=== PATIENT | male | born 2000 | race Caucasian/White ===

== ENCOUNTER 2021-06-22 17:45 | Inpatient (IN) | payer OTHER ==
[~2021-06-22] VITALS: Ht 177.8 cm; Wt 81.6 kg
[2021-06-22 18:33] LABS: HEMOGLOBIN 14.2 gm/dl (14.0-17.5); RED BLOOD COUNT 4.59 M/UL (4.20-5.50); WHITE BLOOD COUNT 4.8 K/UL (4.5-11.0)
[2021-06-22 18:52] LABS: BUN/CREATININE RATIO 19 (0-10)
[2021-06-23 10:33] LABS: WHITE BLOOD COUNT 4.8 K/UL (4.5-11.0)
[2021-06-23 10:35] LABS: HEMOGLOBIN 11.8 gm/dl (14.0-17.5); RED BLOOD COUNT 3.85 M/UL (4.20-5.50)
[2021-06-23 10:54] LABS: BUN/CREATININE RATIO 19 (0-10)
[2021-06-23] MEDS ORDERED: IBU600 MG PO (11:24)
[2021-06-23 23:09] LABS: ADENOVIRUS F 40/41 Not Detected (Negative); ASTROVIRUS Not Detected (Negative); CAMPYLOBACTER Not Detected (Negative); CRYPTOSPORIDIUM Not Detected (Negative); E.COLI 0157 Not Detected (Negative); ENTAMOEBA HISTOLYTICA Not Detected (Negative); ENTEROAGGREGATIVE E.COLI (EAEC Not Detected (Negative); ENTEROPATHOGENIC E.COLI (EPEC) Not Detected (Negative); ENTEROTOXIGENIC E.COLI (ETEC) Not Detected (Negative); GIARDIA LAMBLIA Not Detected (Negative); NOROVIRUS GI/GII Not Detected (Negative); PLESIOMONAS SHIGELLOIDES Not Detected (Negative); ROTOVIRUS A Not Detected (Negative); SALMONELLA Not Detected (Negative); SAPOVIRUS Not Detected (Negative); SHIG/ENTEROINVAS.ECOLI (EIEC) Not Detected (Negative); SHIGA-LIK TOX.PRO.E.COLI (STEC Not Detected (Negative); VIBRIO Not Detected (Negative); VIBRIO CHOLERAE Not Detected (Negative); YERSINIA ENTEROCOLITICA Not Detected (Negative)
[2021-06-24 06:36] LABS: HEMOGLOBIN 12.6 gm/dl (14.0-17.5); RED BLOOD COUNT 4.13 M/UL (4.20-5.50); WHITE BLOOD COUNT 5.1 K/UL (4.5-11.0)
[2021-06-24 07:04] LABS: BUN/CREATININE RATIO 19 (0-10)
[2021-06-24 08:17] LABS: CLOSTRIDIUM DIFFICILE TOX A/B DETECTED (Negative)
[2021-06-25 06:21] LABS: HEMOGLOBIN 13.9 gm/dl (14.0-17.5); WHITE BLOOD COUNT 5.9 K/UL (4.5-11.0)
[2021-06-25 06:34] LABS: RED BLOOD COUNT 4.55 M/UL (4.20-5.50)
[2021-06-25 06:50] LABS: BUN/CREATININE RATIO 11 (0-10)
[2021-06-26 06:27] LABS: HEMOGLOBIN 12.8 gm/dl (14.0-17.5); RED BLOOD COUNT 4.23 M/UL (4.20-5.50); WHITE BLOOD COUNT 6.9 K/UL (4.5-11.0)
[2021-06-26 06:54] LABS: BUN/CREATININE RATIO 10 (0-10)
[2021-06-26] MEDS ORDERED: VANCOMYCIN HCL125 MG PO (11:50)
[2021-06-27 07:16] LABS: WHITE BLOOD COUNT 6.8 K/UL (4.5-11.0)
[2021-06-27 07:18] LABS: HEMOGLOBIN 14.8 gm/dl (14.0-17.5); RED BLOOD COUNT 4.87 M/UL (4.20-5.50)
[2021-06-27 07:28] LABS: BUN/CREATININE RATIO 13 (0-10)
== END 2021-06-27 11:32 | disposition home or self-care (01) | DRG 371 ==
LOC: ER1 17:45 → M/S 06-23 00:08 → CDU 06-23 00:08 → M/S 06-24 16:17
PROVIDERS: Internal Medicine; Physician Assistant Medical; ADMIT Internal Medicine
PROC: 8E0ZXY6 Isolation (ICD-10-PCS; principal; 2021-06-23)
DX: A04.72 Enterocolitis due to Clostridium difficile, not specified as recurrent (principal); U07.1 COVID-19; E87.1 Hypo-osmolality and hyponatremia; E87.6 Hypokalemia; E86.0 Dehydration; Z90.49 Acquired absence of other specified parts of digestive tract
CPT/HCPCS: 36415; 80048; 80053; 81001; 83605; 83690; 83735; 84100; 85025; 85027; 86140; 87040; 87507; 96374; 96375; 99285; C9113; J1650; J1956; J2270; J2405; J3480; J7030; Q9967; U0002

== ENCOUNTER 2021-07-10 13:25 | Emergency (ER) | payer OTHER ==
[~2021-07-10 13:25] MED LIST: IBU600 MG PO; VANCOMYCIN HCL125 MG PO
[2021-07-10 17:00] LABS: HEMOGLOBIN 14.5 gm/dl (14.0-17.5); RED BLOOD COUNT 4.54 M/UL (4.20-5.50); WHITE BLOOD COUNT 4.8 K/UL (4.5-11.0)
[2021-07-10 17:39] LABS: BUN/CREATININE RATIO 14 (0-10)
[2021-07-10] MEDS ORDERED: IBUPROFEN600 MG PO (18:00)
== END 2021-07-10 18:20 | disposition home or self-care (01) ==
LOC: ER1 13:25
PROVIDERS: Physician Assistant Medical
DX: I82.611 Acute embolism and thrombosis of superficial veins of right upper extremity (principal); Z90.89 Acquired absence of other organs
CPT/HCPCS: 80053; 85025; 85610; 99284; Q9967

== ENCOUNTER → 2021-08-02 | Day surgery (SDC) | payer OTHER ==
[~2021-08-02] MED LIST changes: +IBUPROFEN600 MG PO
== END | disposition home or self-care (01) ==
LOC: OR 06:54
DX: K50.012 Crohn's disease of small intestine with intestinal obstruction (principal); A04.72 Enterocolitis due to Clostridium difficile, not specified as recurrent; E66.3 Overweight; Z68.26 Body mass index [BMI] 26.0-26.9, adult; K62.89 Other specified diseases of anus and rectum; U07.1 COVID-19
CPT/HCPCS: J2250; J2704; J3010; J7040